=== PATIENT | female | born 1990 ===

== ENCOUNTER 2021-03-18 10:36 | Outpatient (CLI) | payer BC, SELFPAY ==
--- NOTE | ~2021-03-18 | XR_ITS ---
EXAMINATION: XR lumbar spine 2-3V DATE: 03/18/2021 10:59 INDICATION: Low back pain TECHNIQUE: Anteroposterior and lateral views of the lumbar spine, and cone-down lateral view of the l umbosacral junction were obtained. COMPARISON: None. FINDINGS: There is no fracture, dislocation, or subluxation. There is mild loss of intervertebral dis c space height at L5-S1. The vertebral body heights are normal. IMPRESSION: 1. Mild lower lumbar spondylosis without acute findings. Reviewed, dictated and finalized at location B. 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
== END 2021-03-18 10:37 | disposition home or self-care (01) ==
LOC: CHSIMG 10:39
PROVIDERS: PCP Nurse Practitioner Psychiatric/Mental Health; Visit Provider Nurse Practitioner Psychiatric/Mental Health
DX: M54.16 Radiculopathy, lumbar region (principal)
CPT/HCPCS: 72100

== ENCOUNTER 2024-02-08 10:51 | Outpatient (CLI) | payer OTHER, SELFPAY ==
--- NOTE | ~2024-02-08 | XR_ITS ---
[id number] Ordering provider: Chidi Gaytan, ASSORTER History: . RT side neck pain X 2 weeks, NKI, limited ROM . Comparison: None. FINDINGS: VERTEBRAL BODIES: Normal height and alignment. No visible fracture or subluxation. The dens is intact . DISK SPACES: Well maintained. PARASPINOUS SOFT TISSUES: No prevertebral soft tissue swelling. IMPRESSION: No acute osseous abnormality cervical spine. . Reviewed, dictated and finalized at location A.
== END 2024-02-08 10:52 | disposition home or self-care (01) ==
PROVIDERS: PCP Registered Nurse; Visit Provider Registered Nurse
DX: M54.2 Cervicalgia (principal)
CPT/HCPCS: 72040

== ENCOUNTER 2024-03-01 15:40 | Outpatient (CLI) | payer OTHER, SELFPAY ==
--- NOTE | ~2024-03-01 | XR_ITS ---
3 VIEWS LUMBAR SPINE Ordering provider: Chidi Gaytan, ADMIN SECRETARY History: . BACK PAIN . Comparison: March 18, 2021 FINDINGS: VERTEBRAL BODIES: No visible fracture or subluxation. DISK SPACES: Normal. SOFT TISSUES: Normal. IMPRESSION: No acute osseous abnormality lumbar spine. Reviewed, dictated and finalized at location A.
== END 2024-03-01 15:41 | disposition home or self-care (01) ==
PROVIDERS: PCP Registered Nurse; Visit Provider Registered Nurse
DX: M54.9 Dorsalgia, unspecified (principal)
CPT/HCPCS: 72100

== ENCOUNTER 2024-03-22 15:14 | Outpatient (RCR) | payer OTHER, SELFPAY ==
--- NOTE | 2024-03-22 16:25 | OPREHPOC ---
Outpatient Therapy Plan of Care This is a Multidisciplinary Plan of Care that may contain components documented by all disciplines (PT, OT, and ST.) PT Problem 1 PT Problem #1 Knowledge Deficit PT Goal 1 Goal / Goal Update 1. independent and compliant with HEP Target Visit 6 PT Problem 2 PT Problem #2 Pain PT Goal 1 Goal / Goal Update 1. return to pain free activities and work performance Target Visit 12 PT Problem 3 PT Problem #3 Impaired Range of Motion PT Goal 1 Goal / Goal Update 1. full lumbar rom without pain Target Visit 12 PT Problem 4 PT Problem #4 Impaired Strength PT Goal 1 Goal / Goal Update 1. 5/5 bilateral hip strength Target Visit 12 PT Problem 5 PT Problem #5 Impaired Functional Mobil PT Goal 1 Goal / Goal Update 1. oswestry to display less than 20% functional deficits 2. patient to squat and lift 40lbs safely from floor to waist Target Visit 12
--- NOTE | 2024-03-22 16:25 | PTOPEVAL1 ---
Assessment and note entered by JT File, PT Evaluation Information Assessment Status Evaluation ICD-10 Condition Codes (PT) M54.16 Onset 03/05/24 Subjective Information patient reports she coughed and felt a pop across her back. she reports she then felt cold across the L side. she report this occurred on 03/05/24, and it has not gotten any better since. she reports she has had xray, but no MRI yet. she reports she has increased pain with work ([employer]). 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 she reports she has reduced pain and symptoms with laying down. she reports initially the symptoms went to the L, but now her pain is in the R hip. Reported Pain Level Pain Score 5: Self Report Assessment PT Clinical Summary mrs. gregory is a 33 yo woman who presents to skilled PT services for evaluation and treatment of lumbar pain and radicular symptoms. she presents today with decreased lumbar flexion, radicular symptoms, weak hips, and weak core. 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 she would benefit from continued skilled PT to address her objective/ functional deficits and return to her prior level functional activity performance/quality of life. Plan of Care Interventions Electrical Stimulation,Hot Pack/Cold Pack,Manual Therapy,Mechanical Traction,Neuro Re-education, Patient/Caregiver Educati,Therapeutic Activities, Therapeutic Exercise PT Services Indicated Yes Treatment Frequency and 3x weekly for 12 visits Duration These treatments will address the objective and functional deficits as defined above. The patient will be advanced safely and appropriately in order for the patient to progress towards his/her prior level of function. Additional exercises will be introduced and as well as a comprehensive home exercise program upon discharge, if needed, ?to ensure carryover of functional gains achieved in the clinic. This treatment plan has been reviewed and agreement upon by the patient.
== END 2024-06-20 23:59 | disposition home or self-care (01) ==
LOC: CHSPT 15:14
PROVIDERS: Visit Provider Registered Nurse
DX: M54.16 Radiculopathy, lumbar region (principal)
CPT/HCPCS: 97014; 97110; 97140; 97161; G0283